=== PATIENT | male | born 1960 | race Caucasian/White ===

== ENCOUNTER 2021-05-23 09:14 | Inpatient (IN) | payer OTHER ==
[~2021-05-23] VITALS: Ht 175.3 cm; Wt 101.6 kg
[~2021-05-23 09:14] MED LIST: ASPI-1450 PO; ATOR40TA28 PO; ERTU1TAB11 PO; LEVO150 PO; LISI-892 PO; METO25 PO; SODIUM CHLORIDE 0.9% 1,000 ML IV ONE; SODIUM CHLORIDE 0.9% 1,000 ML ONE; TRAZ-252 PO; [UNRECOGNIZED DRUG - CODE] PO
[2021-05-23] MEDS ORDERED: DIAZEPAM 5 MG TABLET ONE (09:43)
[2021-05-23] MEDS ORDERED: DiphenhydrAMINE HCL 50 MG CAPSULE ONE (09:43)
[2021-05-23] MEDS ORDERED: ASPIRIN 81 MG CHEWABLE TABLET ONE (09:44)
[2021-05-23] MEDS ORDERED: AMLO2.5T96 PO (09:51)
[2021-05-23] MEDS ORDERED: HYDR25TA2 PO (09:52)
[2021-05-23 10:11] LABS: GLUCOMETER DEV NAME(LOC) SDS.; GLUCOSE,POINT OF CARE 139 MG/DL (70-110)
[2021-05-23] MEDS ORDERED: LIDOCAINE/PF 1% 30 ML VIAL ONE (10:19)
[2021-05-23] MEDS ORDERED: SODIUM BICARBONATE 50 MEQ/50 ML VIAL ONE (10:19)
[2021-05-23] MEDS ORDERED: IOHEXOL 300 MG/ML 50 ML VIAL ONE (10:19)
[2021-05-23] MEDS ORDERED: IOHEXOL 300 MG/ML 100 ML VIAL ONE (10:19)
[2021-05-23] MEDS ORDERED: HEPARIN SODIUM 1000 UNITS/NS 1,000 ML ONE (10:19)
[2021-05-23] MEDS ORDERED: IOHEXOL 300 MG/ML 150 ML VIAL ONE (10:19)
[2021-05-23] MEDS ORDERED: ASPIRIN 81 MG CHEWABLE TABLET PO ONE (10:30)
[2021-05-23] MEDS ORDERED: DiphenhydrAMINE HCL 50 MG CAPSULE PO ONE (10:30)
[2021-05-23] MEDS ORDERED: DIAZEPAM 5 MG TABLET PO ONE (10:30)
[2021-05-23 12:19] VITALS: BP 137/78
[2021-05-23] MEDS ORDERED: FentaNYL CITRATE PF 100 MCG/2 ML VIAL ONE (12:37)
[2021-05-23] MEDS ORDERED: MIDAZOLAM HCL 2 MG/2 ML VIAL ONE (12:38)
[2021-05-23] MEDS ORDERED: MIDAZOLAM HCL 2 MG/2 ML VIAL IVP ONE ×2 (12:45→13:45)
[2021-05-23] MEDS ORDERED: FentaNYL CITRATE PF 100 MCG/2 ML VIAL IVP ONE ×2 (12:45→13:45)
[2021-05-23] MEDS ORDERED: IOHEXOL 300 MG/ML 150 ML VIAL IARTER ONE (12:45)
[2021-05-23] MEDS ORDERED: LIDOCAINE 1% 30 ML/SOD BICARB 8.4% 4 ML SQ ONE (12:45)
[2021-05-23] MEDS ORDERED: HEPARIN SODIUM 1000 UNITS/NS 1,000 ML IARTER ONE (12:45)
[2021-05-23] MEDS ORDERED: TICAGRELOR 90 MG TABLET ONE (12:49)
[2021-05-23] MEDS ORDERED: ASPI-1444 PO (12:54)
[2021-05-23] MEDS ORDERED: OMEP20CA13 PO (12:54)
[2021-05-23] MEDS ORDERED: VITA400C73 PO (12:54)
[2021-05-23] MEDS ORDERED: HEPARIN SODIUM,PORCINE 5,000 UNITS/ML VIAL IVP ONE (13:00)
[2021-05-23] MEDS ORDERED: TICAGRELOR 90 MG TABLET PO ONE ×2 (13:00→18:00)
[2021-05-23] MEDS ORDERED: NITROGLYCERIN 50 MG/D5% WATER 250 ML ONE (13:21)
[2021-05-23] MEDS ORDERED: IOHEXOL 300 MG/ML 100 ML VIAL IARTER ONE (13:30)
[2021-05-23] MEDS ORDERED: IOHEXOL 300 MG/ML 50 ML VIAL IARTER ONE (13:30)
[2021-05-23] MEDS ORDERED: NITROGLYCERIN/D5W 50 MG/250 ML IV BOTTLE ICOR ONE (13:30)
[2021-05-23 13:59] VITALS: BP 133/78
[2021-05-23] MEDS ORDERED: ACETAMINOPHEN 325 MG TABLET PO PRN (14:15)
[2021-05-23] MEDS ORDERED: ONDANSETRON HCL 4 MG/2 ML VIAL IVP PRN (15:45)
[2021-05-23] MEDS ORDERED: DEXTROSE 50%-WATER 25 GM/50 ML SYRINGE IVP PRN (15:45)
[2021-05-23] MEDS ORDERED: MORPHINE SULFATE 2 MG/ML SYRINGE IVP PRN (15:45)
[2021-05-23] MEDS ORDERED: MAGNESIUM HYDROXIDE SUSPENSION 30 ML UDCUP PO PRN (15:45)
[2021-05-23] MEDS ORDERED: INSULIN LISPRO 100 UNITS/ML SQ PRN (15:45)
[2021-05-23] MEDS ORDERED: BISACODYL 10 MG RECTAL RECTAL SUPPOSITORY PR PRN (15:45)
[2021-05-23] MEDS ORDERED: HYDROCODONE/ACETAMINOPHEN 5-325 MG TABLET PO PRN (15:45)
[2021-05-23] MEDS ORDERED: ZOLPIDEM TARTRATE 5 MG TABLET PO PRN (15:45)
[2021-05-23 18:21] LABS: GLUCOMETER DEV NAME(LOC) 5S.2B; GLUCOSE,POINT OF CARE 114 MG/DL (70-110)
[2021-05-23] MEDS: METOPROLOL TARTRATE 25 MG TABLET PO SCH (20:46)
[2021-05-23] MEDS: ACETAMINOPHEN 325 MG TABLET PO PRN (20:46)
[2021-05-23] MEDS: DOCUSATE SODIUM 100 MG CAPSULE PO SCH (20:46)
[2021-05-23 20:54] VITALS: BP 146/84
[2021-05-23 21:01] LABS: GLUCOMETER DEV NAME(LOC) 5S.2B; GLUCOSE,POINT OF CARE 92 MG/DL (70-110)
[2021-05-24] VITALS (8 sets, daily range): BP systolic 118–127; BP diastolic 74–87
[2021-05-24] MEDS ORDERED: LEVOTHYROXINE SODIUM 150 MCG TABLET PO SCH (06:30)
[2021-05-24 06:42] LABS: BASOPHILS % (AUTO) 0.8 % (0.0-2.0); EOSINOPHILS % (AUTO) 1.9 % (1.0-6.0); HEMATOCRIT 48.9 % (41-53); HEMOGLOBIN 16.8 g/dL (13.5-17.5); LYMPHOCYTES # (AUTO) 1.5 K/uL (1.0-4.8); LYMPHOCYTES % (AUTO) 20.7 % (22.0-44.0); MEAN CORPUSCULAR HEMOGLOBIN 29.5 pg (26.0-34.0); MEAN CORPUSCULAR HGB CONC 34.3 G/dL (31.0-37.0); MEAN CORPUSCULAR VOLUME 86 fL (80-100); MONOCYTES # (AUTO) 0.7 K/uL (0.1-1.0); NEUTROPHILS % (AUTO) 67.6 % (40.0-70.0); PLATELET COUNT (AUTO) 200 K/uL (150-450); RED BLOOD CELL COUNT(AUTO) 5.69 MIL/uL (4.50-5.90)
[2021-05-24 06:47] LABS: GLUCOMETER DEV NAME(LOC) 5S.2B; GLUCOSE,POINT OF CARE 106 MG/DL (70-110)
[2021-05-24 07:17] LABS: ANION GAP 7 mmol/L (8-16); CALCIUM, TOTAL 9.1 mg/dL (8.8-10.5); CARBON DIOXIDE 26 mmol/L (22-29); CHLORIDE 102 mmol/L (98-107); GLOMERULAR FILTR. RATE CALC > 60 mL/min (>60); GLUCOSE,RANDOM 94 mg/dL (70-110); POTASSIUM 3.8 mmol/L (3.5-5.1); SODIUM SERUM 135 mmol/L (136-145); UREA NITROGEN, BLOOD 12 mg/dL (7-18)
[2021-05-24] MEDS ORDERED: TICAGRELOR 90 MG TABLET PO SCH ×2 (08:00→09:00)
[2021-05-24] MEDS: DOCUSATE SODIUM 100 MG CAPSULE PO SCH (08:20)
[2021-05-24] MEDS: METOPROLOL TARTRATE 25 MG TABLET PO SCH (08:32)
[2021-05-24] MEDS ORDERED: AmLODIPine BESYLATE 2.5 MG TABLET PO SCH (09:00)
[2021-05-24] MEDS ORDERED: LISINOPRIL 5 MG TABLET PO SCH (09:00)
[2021-05-24] MEDS ORDERED: ATORVASTATIN CALCIUM 40 MG TABLET PO SCH (09:00)
[2021-05-24] MEDS ORDERED: HYDROCHLOROTHIAZIDE 25 MG TABLET PO SCH (09:00)
[2021-05-24] MEDS ORDERED: PANTOPRAZOLE SODIUM 40 MG DR TABLET PO SCH (09:00)
[2021-05-24] MEDS ORDERED: TICA90TA PO (12:57)
[2021-05-24] MEDS ORDERED: ICOS0.5C PO (12:58)
[2021-05-24 14:21] LABS: GLUCOMETER DEV NAME(LOC) 5S.2B; GLUCOSE,POINT OF CARE 131 MG/DL (70-110)
[2021-05-24 17:57] LABS: GLUCOMETER DEV NAME(LOC) 5S.2B; GLUCOSE,POINT OF CARE 113 MG/DL (70-110)
[2021-05-24] MEDS: ACETAMINOPHEN 325 MG TABLET PO PRN (18:37)
== END 2021-05-24 19:20 | disposition home or self-care (01) | DRG 175 ==
LOC: CATHLAB 09:14 → OBSVTOIN 15:45 → 5S 15:45 → INTOOBSV 15:45
PROVIDERS: ADMIT Internal Medicine Interventional Cardiology; ATTEND Internal Medicine Interventional Cardiology
PROC: 4A023N7 Measurement of Cardiac Sampling and Pressure, Left Heart, Percutaneous Approach (ICD-10-PCS; principal; 2021-05-23)
PROC: 027035Z Dilation of Coronary Artery, One Artery with Two Drug-eluting Intraluminal Devices, Percutaneous Approach (ICD-10-PCS; 2021-05-23)
PROC: B211YZZ Fluoroscopy of Multiple Coronary Arteries using Other Contrast (ICD-10-PCS; 2021-05-23)
PROC: B215YZZ Fluoroscopy of Left Heart using Other Contrast (ICD-10-PCS; 2021-05-23)
PROC: B240ZZ3 Ultrasonography of Single Coronary Artery, Intravascular (ICD-10-PCS; 2021-05-23)
PROC: B41FYZZ Fluoroscopy of Right Lower Extremity Arteries using Other Contrast (ICD-10-PCS; 2021-05-23)
DX: I25.110 Atherosclerotic heart disease of native coronary artery with unstable angina pectoris (principal); E03.9 Hypothyroidism, unspecified; E11.9 Type 2 diabetes mellitus without complications; E66.9 Obesity, unspecified; E78.5 Hyperlipidemia, unspecified; I10 Essential (primary) hypertension; Z79.899 Other long term (current) drug therapy; Z68.33 Body mass index [BMI] 33.0-33.9, adult
CPT/HCPCS: 75960; 80048; 82962; 85025; 92920; 92928; 93005; 99219; J1644; J2250; J3010; J3490; J7030; Q9967; 36415-L1; 36415-TC

== ENCOUNTER 2021-05-26 15:59 | Inpatient (IN) | payer OTHER ==
[~2021-05-26] VITALS: Ht 182.9 cm; Wt 100.1 kg
[~2021-05-26 15:59] MED LIST changes: +AMLO2.5T96 PO; +ASPI-1444 PO; -ASPI-1450 PO; +HYDR25TA2 PO; +ICOS0.5C PO; +OMEP20CA13 PO; -SODIUM CHLORIDE 0.9% 1,000 ML IV ONE; -SODIUM CHLORIDE 0.9% 1,000 ML ONE; +TICA90TA PO; +VITA400C73 PO; -[UNRECOGNIZED DRUG - CODE] PO
[2021-05-26] MEDS ORDERED: 0.9% SODIUM CHLORIDE 10 ML SYRINGE IVP PRN (16:15)
[2021-05-26] MEDS ORDERED: DEXTROSE 50%-WATER 25 GM/50 ML SYRINGE IVP PRN ×2 (16:15→16:45)
[2021-05-26] MEDS ORDERED: ACETAMINOPHEN 325 MG TABLET PO PRN ×2 (16:15→16:30)
[2021-05-26] MEDS ORDERED: ONDANSETRON HCL 4 MG/2 ML VIAL IVP PRN (16:15)
[2021-05-26 16:17] VITALS: BP 119/88
[2021-05-26] MEDS ORDERED: FentaNYL CITRATE PF 100 MCG/2 ML VIAL ONE (16:17)
[2021-05-26] MEDS ORDERED: MIDAZOLAM HCL 2 MG/2 ML VIAL ONE (16:17)
[2021-05-26] MEDS ORDERED: METOPROLOL TARTRATE 5 MG/5 ML VIAL ONE ×2 (16:19→16:26)
[2021-05-26] MEDS ORDERED: NITROGLYCERIN 2% (1 GM=INCH) PACKET TP ONE (16:26)
[2021-05-26] MEDS ORDERED: MORPHINE SULFATE 2 MG/ML SYRINGE IVP PRN (16:30)
[2021-05-26] MEDS ORDERED: INSULIN LISPRO 100 UNITS/ML SQ PRN (16:45)
[2021-05-26] MEDS ORDERED: HEPARIN SODIUM,PORCINE 5,000 UNITS/ML VIAL IVP PRN ×2 (16:45)
[2021-05-26] MEDS ORDERED: SODIUM CHLORIDE 0.9% 1,000 ML IV ONE (16:45)
[2021-05-26] MEDS ORDERED: HEPARIN SODIUM 25000 UNITS/D5W 250 ML IV PRN (16:45)
[2021-05-26] MEDS ORDERED: HEPARIN SODIUM,PORCINE 5,000 UNITS/ML VIAL IVP ONE (16:45)
[2021-05-26 16:56] VITALS: BP 117/75
[2021-05-26 17:19] LABS: BASOPHILS % (AUTO) 0.6 % (0.0-2.0); EOSINOPHILS % (AUTO) 0.3 % (1.0-6.0); HEMATOCRIT 50.3 % (41-53); HEMOGLOBIN 16.9 g/dL (13.5-17.5); LYMPHOCYTES # (AUTO) 1.3 K/uL (1.0-4.8); LYMPHOCYTES % (AUTO) 11.9 % (22.0-44.0); MEAN CORPUSCULAR HGB CONC 33.7 G/dL (31.0-37.0); MEAN CORPUSCULAR VOLUME 86 fL (80-100); MONOCYTES # (AUTO) 0.9 K/uL (0.1-1.0); MONOCYTES % (AUTO) 8.1 % (2.0-9.0); NEUTROPHILS # (AUTO) 8.9 K/uL (1.8-7.7); NEUTROPHILS % (AUTO) 79.1 % (40.0-70.0); PLATELET COUNT (AUTO) 242 K/uL (150-450); RED BLOOD CELL COUNT(AUTO) 5.84 MIL/uL (4.50-5.90); RED CELL DISTRIBUTION WIDTH 15.1 % (11.5-14.5)
[2021-05-26 17:24] LABS: ALBUMIN 4.2 g/dL (3.4-5.0); BILIRUBIN,TOTAL 0.9 mg/dL (0.1-1.0); CALCIUM, TOTAL 9.5 mg/dL (8.8-10.5); CREATININE 1.29 mg/dL (0.60-1.30); POTASSIUM 3.9 mmol/L (3.5-5.1); TOTAL PROTEIN, SERUM 8.7 g/dL (6.4-8.2)
[2021-05-26] MEDS: HEPARIN SODIUM 25000 UNITS/D5W 250 ML IV SCH (18:21)
[2021-05-26] MEDS ORDERED: TICAGRELOR 90 MG TABLET PO SCH (21:00)
[2021-05-26] MEDS ORDERED: METOPROLOL TARTRATE 25 MG TABLET PO SCH (21:00)
[2021-05-26] MEDS: ATORVASTATIN CALCIUM 40 MG TABLET PO SCH (21:11)
[2021-05-26] MEDS: EZETIMIBE 10 MG TABLET PO SCH (21:12)
[2021-05-26] MEDS: METOPROLOL TARTRATE 25 MG TABLET PO SCH (21:12)
[2021-05-26] MEDS: FAMOTIDINE 20 MG TABLET PO SCH (21:12)
[2021-05-26] MEDS: TICAGRELOR 90 MG TABLET PO SCH (21:13)
[2021-05-26] MEDS: NITROGLYCERIN 2% (1 GM=INCH) PACKET TP SCH (21:13)
[2021-05-26] MEDS: DOCUSATE SODIUM 100 MG CAPSULE PO SCH (21:13)
[2021-05-26 22:01] LABS: HEMATOCRIT 48.5 % (41-53); HEMOGLOBIN 16.3 g/dL (13.5-17.5)
[2021-05-26 22:11] LABS: GLUCOSE,POINT OF CARE 134 MG/DL (70-110)
[2021-05-27] VITALS (7 sets, daily range): BP systolic 124–142; BP diastolic 74–96
[2021-05-27 05:19] LABS: BASOPHILS % (AUTO) 0.2 % (0.0-2.0); EOSINOPHILS % (AUTO) 0.1 % (1.0-6.0); HEMATOCRIT 46.4 % (41-53); HEMOGLOBIN 15.9 g/dL (13.5-17.5); LYMPHOCYTES # (AUTO) 1.5 K/uL (1.0-4.8); LYMPHOCYTES % (AUTO) 12.6 % (22.0-44.0); MEAN CORPUSCULAR HEMOGLOBIN 29.5 pg (26.0-34.0); MEAN CORPUSCULAR HGB CONC 34.3 G/dL (31.0-37.0); MEAN CORPUSCULAR VOLUME 86 fL (80-100); MONOCYTES # (AUTO) 1.2 K/uL (0.1-1.0); MONOCYTES % (AUTO) 10.2 % (2.0-9.0); NEUTROPHILS # (AUTO) 9.3 K/uL (1.8-7.7); NEUTROPHILS % (AUTO) 76.9 % (40.0-70.0); PLATELET COUNT (AUTO) 220 K/uL (150-450); RED BLOOD CELL COUNT(AUTO) 5.39 MIL/uL (4.50-5.90); RED CELL DISTRIBUTION WIDTH 14.7 % (11.5-14.5)
[2021-05-27 05:28] LABS: HEMOGLOBIN A1C 6.4 % (3.8-5.6)
[2021-05-27 05:55] LABS: ALANINE AMINOTRANSFERASE 14 U/L (12-78); ALBUMIN 2.8 g/dL (3.4-5.0); ALKALINE PHOSPHATASE 64 U/L (46-116); ANION GAP 12 mmol/L (8-16); ASPARTATE AMINOTRANSFERASE 22 U/L (15-37); CALCIUM, TOTAL 6.7 mg/dL (8.8-10.5); CARBON DIOXIDE 18 mmol/L (22-29); CHLORIDE 99 mmol/L (98-107); CREATININE 0.86 mg/dL (0.60-1.30); GLOMERULAR FILTR. RATE CALC > 60 mL/min (>60); GLUCOSE,RANDOM 108 mg/dL (70-110); POTASSIUM 3.3 mmol/L (3.5-5.1); SODIUM SERUM 129 mmol/L (136-145); TOTAL PROTEIN, SERUM 6.2 g/dL (6.4-8.2); UREA NITROGEN, BLOOD 19 mg/dL (7-18)
[2021-05-27 06:21] LABS: GLUCOSE,POINT OF CARE 113 MG/DL (70-110)
[2021-05-27] MEDS ORDERED: ASPIRIN 81 MG CHEWABLE TABLET PO SCH (08:00)
[2021-05-27] MEDS: TICAGRELOR 90 MG TABLET PO SCH ×2 (08:22→20:30)
[2021-05-27] MEDS: DOCUSATE SODIUM 100 MG CAPSULE PO SCH ×2 (08:22→20:30)
[2021-05-27] MEDS: FAMOTIDINE 20 MG TABLET PO SCH ×2 (08:22→20:28)
[2021-05-27] MEDS: NITROGLYCERIN 2% (1 GM=INCH) PACKET TP SCH ×2 (08:22→20:30)
[2021-05-27] MEDS: ASPIRIN 81 MG CHEWABLE TABLET PO SCH (08:23)
[2021-05-27] MEDS: METOPROLOL TARTRATE 25 MG TABLET PO SCH (08:24)
[2021-05-27] MEDS: LOSARTAN POTASSIUM 25 MG TABLET PO SCH (08:27)
[2021-05-27] MEDS ORDERED: POTASSIUM CHL 10 MEQ/WATER 50 ML IV PRN (08:30)
[2021-05-27] MEDS ORDERED: POTASSIUM CHLORIDE 20 MEQ ER TABLET PO PRN (08:30)
[2021-05-27] MEDS ORDERED: ATORVASTATIN CALCIUM 40 MG TABLET PO SCH (09:00)
[2021-05-27] MEDS: INSULIN LISPRO 100 UNITS/ML SQ PRN (11:12)
[2021-05-27] MEDS ORDERED: ICOS1CAP PO (15:13)
[2021-05-27] MEDS ORDERED: METOPROLOL TARTRATE 50 MG TABLET PO ONE (16:15)
[2021-05-27] MEDS: HEPARIN SODIUM 25000 UNITS/D5W 250 ML IV SCH ×2 (17:23→22:06)
[2021-05-27 17:46] LABS: GLUCOSE,POINT OF CARE 133 MG/DL (70-110)
[2021-05-27 19:50] LABS: GLUCOSE,POINT OF CARE 177 MG/DL (70-110)
[2021-05-27] MEDS: ATORVASTATIN CALCIUM 40 MG TABLET PO SCH (20:29)
[2021-05-27] MEDS: EZETIMIBE 10 MG TABLET PO SCH (20:29)
[2021-05-27] MEDS: METOPROLOL TARTRATE 50 MG TABLET PO SCH (20:30)
[2021-05-27 23:36] LABS: GLUCOSE,POINT OF CARE 132 MG/DL (70-110)
[2021-05-28] VITALS (9 sets, daily range): BP systolic 92–132; BP diastolic 56–77
[2021-05-28 05:08] LABS: BASOPHILS % (AUTO) 0.6 % (0.0-2.0); EOSINOPHILS % (AUTO) 0.8 % (1.0-6.0); HEMATOCRIT 42.3 % (41-53); HEMOGLOBIN 14.5 g/dL (13.5-17.5); LYMPHOCYTES # (AUTO) 1.9 K/uL (1.0-4.8); LYMPHOCYTES % (AUTO) 19.4 % (22.0-44.0); MEAN CORPUSCULAR HEMOGLOBIN 29.8 pg (26.0-34.0); MEAN CORPUSCULAR HGB CONC 34.4 G/dL (31.0-37.0); MEAN CORPUSCULAR VOLUME 87 fL (80-100); MONOCYTES # (AUTO) 1.1 K/uL (0.1-1.0); MONOCYTES % (AUTO) 11.8 % (2.0-9.0); NEUTROPHILS # (AUTO) 6.5 K/uL (1.8-7.7); NEUTROPHILS % (AUTO) 67.4 % (40.0-70.0); PLATELET COUNT (AUTO) 207 K/uL (150-450); RED BLOOD CELL COUNT(AUTO) 4.88 MIL/uL (4.50-5.90); RED CELL DISTRIBUTION WIDTH 14.7 % (11.5-14.5)
[2021-05-28 05:31] LABS: ANION GAP 10 mmol/L (8-16); CALCIUM, TOTAL 8.9 mg/dL (8.8-10.5); CARBON DIOXIDE 26 mmol/L (22-29); CHLORIDE 99 mmol/L (98-107); CREATININE 1.04 mg/dL (0.60-1.30); GLOMERULAR FILTR. RATE CALC > 60 mL/min (>60); GLUCOSE,RANDOM 114 mg/dL (70-110); POTASSIUM 3.9 mmol/L (3.5-5.1); SODIUM SERUM 135 mmol/L (136-145); UREA NITROGEN, BLOOD 22 mg/dL (7-18)
[2021-05-28 07:56] LABS: GLUCOSE,POINT OF CARE 104 MG/DL (70-110)
[2021-05-28] MEDS: ASPIRIN 81 MG CHEWABLE TABLET PO SCH (09:24)
[2021-05-28] MEDS: FAMOTIDINE 20 MG TABLET PO SCH ×2 (09:25→20:59)
[2021-05-28] MEDS: METOPROLOL TARTRATE 50 MG TABLET PO SCH ×2 (09:25→21:00)
[2021-05-28] MEDS: LOSARTAN POTASSIUM 25 MG TABLET PO SCH (09:25)
[2021-05-28] MEDS: DOCUSATE SODIUM 100 MG CAPSULE PO SCH ×2 (09:25→20:59)
[2021-05-28] MEDS: TICAGRELOR 90 MG TABLET PO SCH ×2 (09:25→20:59)
[2021-05-28] MEDS: NITROGLYCERIN 2% (1 GM=INCH) PACKET TP SCH ×2 (09:26→21:00)
[2021-05-28] MEDS: HEPARIN SODIUM 25000 UNITS/D5W 250 ML IV SCH (09:28)
[2021-05-28] MEDS ORDERED: HEPARIN SODIUM 25000 UNITS/D5W 250 ML IV SCH (12:15)
[2021-05-28 15:21] LABS: GLUCOSE,POINT OF CARE 116 MG/DL (70-110)
[2021-05-28] MEDS ORDERED: HEPARIN SODIUM,PORCINE 5,000 UNITS/ML VIAL SQ SCH ×2 (16:00)
[2021-05-28 16:11] LABS: GLUCOMETER DEV NAME(LOC) 5S.1B; GLUCOSE,POINT OF CARE 130 MG/DL (70-110)
[2021-05-28] MEDS: METOPROLOL TARTRATE 25 MG TABLET PO SCH ×2 (16:15→21:00)
[2021-05-28 20:36] LABS: GLUCOMETER DEV NAME(LOC) 5S.1B; GLUCOSE,POINT OF CARE 147 MG/DL (70-110)
[2021-05-28] MEDS: INSULIN LISPRO 100 UNITS/ML SQ PRN (20:57)
[2021-05-28] MEDS: ATORVASTATIN CALCIUM 40 MG TABLET PO SCH (20:59)
[2021-05-28] MEDS: EZETIMIBE 10 MG TABLET PO SCH (23:23)
[2021-05-29 03:37] VITALS: BP 111/60
[2021-05-29 06:01] LABS: GLUCOMETER DEV NAME(LOC) 5S.1B; GLUCOSE,POINT OF CARE 87 MG/DL (70-110)
[2021-05-29] MEDS: LEVOTHYROXINE SODIUM 150 MCG TABLET PO SCH (06:04)
[2021-05-29 08:00] VITALS: BP 127/74
[2021-05-29] MEDS: FAMOTIDINE 20 MG TABLET PO SCH ×2 (08:53→20:35)
[2021-05-29] MEDS: TICAGRELOR 90 MG TABLET PO SCH ×2 (08:53→23:10)
[2021-05-29] MEDS: LOSARTAN POTASSIUM 25 MG TABLET PO SCH (08:53)
[2021-05-29] MEDS: DOCUSATE SODIUM 100 MG CAPSULE PO SCH ×2 (08:53→20:35)
[2021-05-29] MEDS: METOPROLOL TARTRATE 50 MG TABLET PO SCH ×2 (08:53→20:36)
[2021-05-29] MEDS: ASPIRIN 81 MG CHEWABLE TABLET PO SCH (08:54)
[2021-05-29] MEDS: NITROGLYCERIN 2% (1 GM=INCH) PACKET TP SCH ×2 (08:54→20:36)
[2021-05-29] MEDS: HEPARIN SODIUM 25000 UNITS/D5W 250 ML IV SCH (09:15)
[2021-05-29 12:36] LABS: GLUCOMETER DEV NAME(LOC) 5S.1B; GLUCOSE,POINT OF CARE 98 MG/DL (70-110)
[2021-05-29 13:09] VITALS: BP 114/62
[2021-05-29 14:25] LABS: BASOPHILS % (AUTO) 0.5 % (0.0-2.0); EOSINOPHILS % (AUTO) 1.8 % (1.0-6.0); HEMATOCRIT 38.4 % (41-53); HEMOGLOBIN 12.9 g/dL (13.5-17.5); LYMPHOCYTES # (AUTO) 1.3 K/uL (1.0-4.8); LYMPHOCYTES % (AUTO) 16.4 % (22.0-44.0); MEAN CORPUSCULAR HEMOGLOBIN 28.8 pg (26.0-34.0); MEAN CORPUSCULAR HGB CONC 33.5 G/dL (31.0-37.0); MEAN CORPUSCULAR VOLUME 86 fL (80-100); MONOCYTES # (AUTO) 0.9 K/uL (0.1-1.0); MONOCYTES % (AUTO) 10.9 % (2.0-9.0); NEUTROPHILS # (AUTO) 5.5 K/uL (1.8-7.7); NEUTROPHILS % (AUTO) 70.4 % (40.0-70.0); PLATELET COUNT (AUTO) 198 K/uL (150-450); RED BLOOD CELL COUNT(AUTO) 4.46 MIL/uL (4.50-5.90); RED CELL DISTRIBUTION WIDTH 14.7 % (11.5-14.5)
[2021-05-29 14:35] LABS: ANION GAP 10 mmol/L (8-16); CALCIUM, TOTAL 8.5 mg/dL (8.8-10.5); CARBON DIOXIDE 26 mmol/L (22-29); CHLORIDE 97 mmol/L (98-107); CREATININE 1.07 mg/dL (0.60-1.30); GLOMERULAR FILTR. RATE CALC > 60 mL/min (>60); GLUCOSE,RANDOM 169 mg/dL (70-110); POTASSIUM 3.9 mmol/L (3.5-5.1); SODIUM SERUM 133 mmol/L (136-145); UREA NITROGEN, BLOOD 21 mg/dL (7-18)
[2021-05-29 14:39] LABS: PROTHROMBIN TIME 10.7 SEC (9.4-11.6)
[2021-05-29 14:41] LABS: ALANINE AMINOTRANSFERASE 22 U/L (12-78); ALBUMIN 3.2 g/dL (3.4-5.0); ALKALINE PHOSPHATASE 70 U/L (46-116); ASPARTATE AMINOTRANSFERASE 19 U/L (15-37); BILIRUBIN,TOTAL 1.2 mg/dL (0.1-1.0); TOTAL PROTEIN, SERUM 7.1 g/dL (6.4-8.2)
[2021-05-29 16:00] VITALS: BP 115/58
[2021-05-29 17:02] LABS: GLUCOMETER DEV NAME(LOC) 5N.3; GLUCOSE,POINT OF CARE 132 MG/DL (70-110)
[2021-05-29] MEDS ORDERED: HEPARIN SODIUM 25000 UNITS/D5W 250 ML IV SCH (19:00)
[2021-05-29 20:15] VITALS: BP 97/60
[2021-05-29] MEDS: ATORVASTATIN CALCIUM 40 MG TABLET PO SCH (20:36)
[2021-05-29] MEDS: EZETIMIBE 10 MG TABLET PO SCH (20:40)
[2021-05-29] MEDS: INSULIN LISPRO 100 UNITS/ML SQ PRN (20:43)
[2021-05-29 21:01] LABS: GLUCOMETER DEV NAME(LOC) 5S.1B; GLUCOSE,POINT OF CARE 169 MG/DL (70-110)
[2021-05-30] VITALS (16 sets, daily range): BP systolic 83–129; BP diastolic 46–78
[2021-05-30 04:01] LABS: GLUCOMETER DEV NAME(LOC) 5S.1B; GLUCOSE,POINT OF CARE 82 MG/DL (70-110)
[2021-05-30] MEDS: LEVOTHYROXINE SODIUM 150 MCG TABLET PO SCH (06:16)
[2021-05-30] MEDS ORDERED: IOHEXOL 300 MG/ML 50 ML VIAL ONE (07:08)
[2021-05-30] MEDS ORDERED: IOHEXOL 300 MG/ML 150 ML VIAL ONE (07:08)
[2021-05-30] MEDS ORDERED: LIDOCAINE/PF 1% 30 ML VIAL ONE (07:08)
[2021-05-30] MEDS ORDERED: SODIUM BICARBONATE 50 MEQ/50 ML VIAL ONE (07:08)
[2021-05-30] MEDS ORDERED: IOHEXOL 300 MG/ML 100 ML VIAL ONE (07:09)
[2021-05-30] MEDS ORDERED: HEPARIN SODIUM 1000 UNITS/NS 1,000 ML ONE (07:09)
[2021-05-30] MEDS ORDERED: MIDAZOLAM HCL 2 MG/2 ML VIAL ONE (07:43)
[2021-05-30] MEDS ORDERED: FentaNYL CITRATE PF 100 MCG/2 ML VIAL ONE (07:43)
[2021-05-30] MEDS ORDERED: SODIUM CHLORIDE 0.9% 500 ML IV ONE (08:00)
[2021-05-30] MEDS ORDERED: HEPARIN SODIUM 1000 UNITS/NS 1,000 ML IARTER ONE (08:00)
[2021-05-30] MEDS ORDERED: IOHEXOL 300 MG/ML 150 ML VIAL IARTER ONE (08:00)
[2021-05-30] MEDS ORDERED: FentaNYL CITRATE PF 100 MCG/2 ML VIAL IVP ONE ×2 (08:00→08:15)
[2021-05-30] MEDS ORDERED: LIDOCAINE 1% 30 ML/SOD BICARB 8.4% 4 ML SQ ONE (08:00)
[2021-05-30] MEDS ORDERED: MIDAZOLAM HCL 2 MG/2 ML VIAL IVP ONE ×2 (08:00→08:15)
[2021-05-30] MEDS ORDERED: HEPARIN SODIUM,PORCINE 5,000 UNITS/ML VIAL IVP ONE ×2 (08:15)
[2021-05-30] MEDS ORDERED: TICAGRELOR 90 MG TABLET ONE (08:33)
[2021-05-30] MEDS ORDERED: TICAGRELOR 90 MG TABLET PO ONE (08:45)
[2021-05-30] MEDS: FAMOTIDINE 20 MG TABLET PO SCH ×2 (09:00→21:15)
[2021-05-30] MEDS: LOSARTAN POTASSIUM 25 MG TABLET PO SCH (09:00)
[2021-05-30] MEDS: METOPROLOL TARTRATE 50 MG TABLET PO SCH ×2 (09:00→21:15)
[2021-05-30] MEDS: DOCUSATE SODIUM 100 MG CAPSULE PO SCH ×2 (09:00→21:15)
[2021-05-30] MEDS: ASPIRIN 81 MG CHEWABLE TABLET PO SCH (09:00)
[2021-05-30] MEDS: NITROGLYCERIN 2% (1 GM=INCH) PACKET TP SCH ×2 (09:00→21:16)
[2021-05-30 11:54] LABS: GLUCOMETER DEV NAME(LOC) 5N.3; GLUCOSE,POINT OF CARE 123 MG/DL (70-110)
[2021-05-30] MEDS: METOPROLOL TARTRATE 25 MG TABLET PO SCH (17:14)
[2021-05-30 21:06] LABS: GLUCOMETER DEV NAME(LOC) 5N.1C; GLUCOSE,POINT OF CARE 123 MG/DL (70-110)
[2021-05-30] MEDS: ATORVASTATIN CALCIUM 40 MG TABLET PO SCH (21:14)
[2021-05-30] MEDS: EZETIMIBE 10 MG TABLET PO SCH (21:15)
[2021-05-30] MEDS: TICAGRELOR 90 MG TABLET PO SCH (21:16)
[2021-05-31 03:45] VITALS: BP 125/70
[2021-05-31] MEDS: LEVOTHYROXINE SODIUM 150 MCG TABLET PO SCH (06:30)
[2021-05-31 07:08] LABS: BASOPHILS % (AUTO) 0.5 % (0.0-2.0); EOSINOPHILS % (AUTO) 0.8 % (1.0-6.0); HEMATOCRIT 37.6 % (41-53); HEMOGLOBIN 12.9 g/dL (13.5-17.5); LYMPHOCYTES # (AUTO) 1.4 K/uL (1.0-4.8); LYMPHOCYTES % (AUTO) 16.4 % (22.0-44.0); MEAN CORPUSCULAR HEMOGLOBIN 29.4 pg (26.0-34.0); MEAN CORPUSCULAR HGB CONC 34.2 G/dL (31.0-37.0); MEAN CORPUSCULAR VOLUME 86 fL (80-100); MONOCYTES # (AUTO) 1.2 K/uL (0.1-1.0); NEUTROPHILS # (AUTO) 5.9 K/uL (1.8-7.7); NEUTROPHILS % (AUTO) 68.3 % (40.0-70.0); PLATELET COUNT (AUTO) 229 K/uL (150-450); RED BLOOD CELL COUNT(AUTO) 4.38 MIL/uL (4.50-5.90); RED CELL DISTRIBUTION WIDTH 14.6 % (11.5-14.5)
[2021-05-31 07:23] LABS: ANION GAP 9 mmol/L (8-16); CALCIUM, TOTAL 8.8 mg/dL (8.8-10.5); CARBON DIOXIDE 27 mmol/L (22-29); CHLORIDE 101 mmol/L (98-107); CREATININE 0.93 mg/dL (0.60-1.30); GLOMERULAR FILTR. RATE CALC > 60 mL/min (>60); GLUCOSE,RANDOM 83 mg/dL (70-110); POTASSIUM 3.8 mmol/L (3.5-5.1); SODIUM SERUM 137 mmol/L (136-145); UREA NITROGEN, BLOOD 13 mg/dL (7-18)
[2021-05-31 08:05] VITALS: BP 118/72
[2021-05-31 08:31] LABS: GLUCOMETER DEV NAME(LOC) 5N.1C; GLUCOSE,POINT OF CARE 92 MG/DL (70-110)
[2021-05-31] MEDS: ASPIRIN 81 MG CHEWABLE TABLET PO SCH (08:58)
[2021-05-31] MEDS: DOCUSATE SODIUM 100 MG CAPSULE PO SCH (08:58)
[2021-05-31] MEDS: FAMOTIDINE 20 MG TABLET PO SCH (08:59)
[2021-05-31] MEDS: TICAGRELOR 90 MG TABLET PO SCH (08:59)
[2021-05-31] MEDS: METOPROLOL TARTRATE 50 MG TABLET PO SCH (09:00)
[2021-05-31] MEDS: NITROGLYCERIN 2% (1 GM=INCH) PACKET TP SCH (09:00)
[2021-05-31] MEDS: LOSARTAN POTASSIUM 25 MG TABLET PO SCH (09:01)
[2021-05-31 12:01] VITALS: BP 122/78
[2021-05-31] MEDS: INSULIN LISPRO 100 UNITS/ML SQ PRN ×2 (12:52→17:15)
[2021-05-31 15:34] VITALS: BP 120/72
[2021-05-31] MEDS: METOPROLOL TARTRATE 25 MG TABLET PO SCH (17:02)
[2021-05-31 20:36] LABS: GLUCOMETER DEV NAME(LOC) 5N.3; GLUCOSE,POINT OF CARE 114 MG/DL (70-110)
[2021-05-31 21:57] LABS: GLUCOMETER DEV NAME(LOC) 5N.1C; GLUCOSE,POINT OF CARE 218 MG/DL (70-110)
[2021-05-31 21:57] LABS: GLUCOMETER DEV NAME(LOC) 5N.1C; GLUCOSE,POINT OF CARE 147 MG/DL (70-110)
== END 2021-05-31 20:05 | disposition home or self-care (01) | DRG 174 ==
LOC: EMS 16:16 → ICU 16:18 → 5S 05-28 13:30
PROVIDERS: ADMIT Internal Medicine; ATTEND Internal Medicine
PROC: 027034Z Dilation of Coronary Artery, One Artery with Drug-eluting Intraluminal Device, Percutaneous Approach (ICD-10-PCS; principal; 2021-05-30)
PROC: B240ZZ3 Ultrasonography of Single Coronary Artery, Intravascular (ICD-10-PCS; 2021-05-30)
DX: I21.3 ST elevation (STEMI) myocardial infarction of unspecified site (principal); R65.10 Systemic inflammatory response syndrome (SIRS) of non-infectious origin without acute organ dysfunction; E11.9 Type 2 diabetes mellitus without complications; I10 Essential (primary) hypertension; I25.10 Atherosclerotic heart disease of native coronary artery without angina pectoris; S30.1XXA Contusion of abdominal wall, initial encounter; E66.9 Obesity, unspecified; Z79.02 Long term (current) use of antithrombotics/antiplatelets; Z79.84 Long term (current) use of oral hypoglycemic drugs; Z83.3 Family history of diabetes mellitus; Z79.890 Hormone replacement therapy; Z68.29 Body mass index [BMI] 29.0-29.9, adult; Y93.89 Activity, other specified; Y92.89 Other specified places as the place of occurrence of the external cause
CPT/HCPCS: 75960; 76856; 80048; 80053; 82962; 83036; 84132; 84484; 85014; 85018; 85025; 85610; 85730; 87081; 92920; 92928; 93005; 93308; 99285; G0378; J1644; J2250; J2270; J3010; J3490; J7030; Q9967; 36415-L1; 36415-TC